=== PATIENT | male | born 1980 | race Caucasian/White ===

== ENCOUNTER 2018-09-18 21:39 | Observation (INO) | payer BC, OTHER ==
--- NOTE | 2018-09-18 21:55 | ED Physician Documentation ---
Abdominal Pain - HISTORIAN Historian: patient - HPI Stated Complaint: Abdominal pain Chief Complaint: Abdominal Pain Additonal Information: Patient is a 37-year-old male that presents to the ER via [facility] from home. Patient c/o nausea and vomiting that started around 2p today. States he last ate at noon today (Wendys). States he was at work when symptoms started. States he has vomited > 5 times over the last hour, abdominal discomfort, epigastric discomfort. Denies any fever or diarrhea. Has not been around anyone ill. Denies any chest pain or shortness of breath. States he has not voided since earlier today. Onset: hours (2 p.m.) Duration: sudden-onset Timing: still present Context: denies: out of country travel, bad food Severity: moderate Quality: aching, cramping Associated Symptoms: chills, nausea, vomiting Exacerbated by: movements, food Relieved by: nothing - ROS CONST: no problems GI/: none CVS/RESP: none EYES/ENT: none MS/SKIN/LYMPH: none NEURO/PSYCH: anxiety, depression - SOCIAL HX Smoking History: greater than 1 pack/day Alcohol Use: none Drug Use: none - FAMILY HX Family History: none - PAST HX Past History: none Ischemic Bowel Risk Factors: none Other History: hyperlipidemia, hypertension, other (depression, anxiety, HLD) Surgeries/Procedures: other (shoulder) Immunizations: UTD Home Medications: Ambulatory Orders Medication Instructions Recorded Alprazolam [Niravam] 0.25 mg TID PRN 09/18/18 Bupropion HCl [Wellbutrin Sr] 150 mg BID 09/18/18 Cyclobenzaprine HCl [Flexeril] 10 mg PRN 09/18/18 Gemfibrozil [Lopid] 600 mg AM 09/18/18 Lisinopril [Prinivil] 10 mg DAILY 09/18/18 Venlafaxine HCl [Effexor Xr] 150 mg DAILY 09/18/18 Allergies/Adverse Reactions: Allergies Allergy/AdvReac Type Severity Reaction Status Date / Time No Known Allergies Allergy Verified 09/18/18 21:51 - VITAL SIGNS Vital Signs: Vital Signs Temp Pulse Resp BP Pulse Ox 98.2 F 87 16 141/97 97 09/18/18 21:40 09/18/18 22:10 09/18/18 22:10 09/18/18 22:10 09/18/18 22:10 - REVIEWED ASSESSMENTS Nursing Assessment Reviewed: Yes Vitals Reviewed: Yes Progress - Progress Progress: 23:50 Patient has a SBO- no vomiting since arrival- will continue with IV hydration and admit as an inpatient; will hydrate with NS at 100cc/hr, repeat labs tomorrow afternoon as well as a KUB. 00:05 patient had a large BM and was able to void on his own ED Results Lab/Radiology - Lab Results Lab Results: WBC 21.3, H&H 14.6 & 43.3, Platelets 355, NE 84.4, LY 7.6, MO 5.9 Na 142, K+ 4.0, Cl 102, CO2 26, Glucose 177, BUN/Cr 12/1.14, Lipase 36, ALT 10.2, AST 23, ALK phos 124 Urine; glucose neg; bilirubin 1+; ketone trace; specific gravity 1.010; blood trace; Ph 6.5; protein 1+; urobilinogen 1.0; nitrate negative; leukocytes negative - Orders Orders: ED Orders Category Date Time Status Intermittent urinary catheteri 1T Care 09/18/18 23:32 Active Oil Enema [Administer Enema] 1T Care 09/18/18 23:[address] IV Lock 1T Care 09/18/18 21:[address] ABD & PELVIS W/ CON Stat Exams 09/18/18 Completed BLOOD CULTURE Stat Lab 09/18/18 Ordered CBC/PLATELET/DIFF Routine Lab 09/18/18 22:06 Received CMP Routine Lab 09/18/18 22:05 Received LIPASE Stat Lab 09/18/18 22:05 Received UDS [DRUG SCREEN URINE MEDICAL ONLY] Routine Lab 09/18/18 Ordered URINALYSIS Routine Lab 09/18/18 Ordered 0.9 % Sodium Chloride [Normal Saline] 1,000 ml Med 09/18/18 23:17 Discontinued IV Q1H Famotidine/Pf [Pepcid] Med 09/19/18 00:04 Discontinued 20 mg IV NOW ONE Ketorolac Tromethamine [Toradol] Med 09/18/18 23:09 Discontinued 30 mg IV NOW ONE EKG WITH COMPARISON Stat Ther 09/18/18 Ordered Abdominal Pain Physical Exam - Physical Exam General Appearance: moderate distress EENT: eye inspection normal, ENT inspection normal, pharynx normal, dry mucous membranes NECK: normal inspection, supple RESPIRATORY: breath sounds normal CVS: heart sounds normal ABDOMEN: normal bowel sounds, tenderness, other (abdomen firm) SKIN: warm/dry, normal color EXTREMITIES: non-tender, normal range of motion NEURO: oriented X3, CN's nml as tested, motor nml, sensation nml, mood/affect nml, cognition normal Vital Signs: Vital Signs Temp Pulse Resp BP Pulse Ox 98.2 F 87 16 141/97 97 09/18/18 21:40 09/18/18 22:10 09/18/18 22:10 09/18/18 22:10 09/18/18 22:10 Discharge Clincal Impression: Small bowel obstruction Condition: Good Decision to Admit: [id number] Date of Decison to Admit: 09/19/18 Decision Time: 00:25
[2018-09-18] MEDS ORDERED: KETOROLAC TROMETHAMINE 30 MG/1ML VIAL IV ONE (23:09)
[2018-09-18] MEDS ORDERED: 0.9 % SODIUM CHLORIDE 1,000 ML IV ONE (23:17)
--- NOTE | 2018-09-18 23:41 | Diagnostic Imaging Report ---
JUAN ESPINOSA ED [facility] [address] [address] Report Submission Date: Sep 18, 2018 11:26:54 PM CDT Patient Study Name: PRINCESS CAMPOS Date: Sep 18, 2018 10:48:53 PM CDT Modality Type: CT\SR Gender: M Description: CT ABD PELVIS W/ CON : 78 Institution: [facility] Physician: JUAN ESPINOSA ED EXAMINATION: CT ABD PELVIS W/ CON HISTORY: DIFFUSE ABDOMINAL PAIN W/ FREQUENT VOMITING (Hx) / ITS.REASON Diffuse abd pain with frequent vomiting Note time : 09/18/2018 11:01:02 PM User : Rayne Mcgee 90mL's Omni diffuse abdominal pain w/ frequent vomiting (DICOM Hx) (DICOM Hx) TECHNIQUE: CT of the abdomen and pelvis was performed with contrast according to standard protocol. COMPARISON: None FINDINGS: The aorta is normal in caliber. The visible lung bases are clear. The heart size is normal. The liver enhances homogeneously. The gallbladder appears normal. The intrahepatic and extrahepatic bile ducts are nondilated. The spleen enhances homogeneously. The pancreas and adrenal glands are normal. The kidneys enhance symmetrically. There is no evidence of renal calculus or hydronephrosis. The distal esophagus and stomach appear normal. There is diffuse dilatation of the small bowel. The colon is relatively decompressed. No definite transition point is identified. There are multiple air fluid levels. The appendix is not seen. No free air or free fluid is identified in the abdomen. There is no abdominal lymphadenopathy. The urinary bladder is distended with fluid and appears normal. No free fluid is seen in the pelvis. Bone windows demonstrate no suspicious lytic or blastic lesions. The visible osseous structures are intact. IMPRESSION: 1. Diffuse small bowel dilatation, consistent with small bowel obstruction. The colon is relatively decompressed. There is no evidence of pneumoperitoneum or pneumatosis. Electronically signed on Sep 18, 2018 11:26:54 PM CDT by: Christiano JAMES
[2018-09-19] MEDS ORDERED: FAMOTIDINE 20 MG/2 ML VIAL IV ONE (00:04)
[2018-09-19] MEDS ORDERED: ONDANSETRON HCL/PF 4 MG/ 2ML VIAL IVP PRN (01:03)
[2018-09-19 01:34] VITALS: BMI 23.7
[2018-09-19] MEDS: 0.9 % SODIUM CHLORIDE 1,000 ML IV SCH ×3 (01:43→20:16)
[2018-09-19] MEDS: KETOROLAC TROMETHAMINE 30 MG/1ML VIAL IV PRN ×3 (05:56→23:00)
[2018-09-19 06:00] LABS: BASOPHILS % 0.5 % (0.0-1.5); NEUTROPHILS # 15.7 # k/uL (1.4-7.7)
[2018-09-19 06:13] LABS: BASOPHILS % 0.8 % (0.0-1.5); NEUTROPHILS # 18.3 # k/uL (1.4-7.7)
[2018-09-19 06:14] LABS: eGFR (Non-African) > 60
[2018-09-19 06:20] LABS: eGFR (Non-African) > 60
--- NOTE | 2018-09-19 07:39 | History and Physical Report ---
History of Present Illnes - History of Present Illness Reason for Visit: Small Bowel Obstrction History of Present Illness: ER Documentation "Patient is a 37-year-old male that presents to the ER via [facility] from home. Patient c/o nausea and vomiting that started around 2p today. States he last ate at noon today (Wendys). States he was at work when symptoms started. States he has vomited > 5 times over the last hour, abdominal discomfort, epigastric discomfort. Denies any fever or diarrhea. Has not been around anyone ill. Denies any chest pain or shortness of breath. States he has not voided since earlier today'. 07:30 Patient feeling much better this morning- no nausea or vomiting- very mild abdominal discomfort- no vomiting since admission Called and spoke to Dr. Daniel at the [facility]; does not recommend transfer; patient condition improving; advance diet to clear liquids; if patient does well- consider discharge. - Past Medical History Cardiac: HTN, Hyperlipidemia Psych: Anxiety, Depression - Past Surgical History Past Surgical History: Other (Shoulder) - Past Social History Smoke: 1 pack per day Alcohol: Occassional Drugs: Marijuana, Other (Meth) Lives: With Family Domestic Violence: Negative - Health Maintenance Health Maintenance: Cholesterol, Tetanus Influenza Vaccine: No Pneumonia Vaccine: No Resuscitation Status: Resusciation Status Resuscitation Status Full Code Review of Systems - Review of Systems Constitutional: negative: Fever, Chills Eyes: negative: conjunctivae inflammation, eyelid inflammation ENT: negative: Nose Discharge Respiratory: negative: Cough, Shortness of Breath Cardiovascular: negative: Chest Pain Gastrointestinal: Nausea (Improving- no vomiting since arrival to ER), Abdominal Pain (Improved- dull). negative: Vomiting Genitourinary: negative: Dysuria Musculoskeletal: negative: Back Pain Skin: negative: Rash Neurological: negative: Weakness - Medications/Allergies Allergies/Adverse Reactions: Allergies Allergy/AdvReac Type Severity Reaction Status Date / Time No Known Allergies Allergy Verified 09/18/18 21:51 Home Medications: Home Medications Alprazolam [Niravam] 0.25 mg TID PRN 09/18/18 Bupropion HCl [Wellbutrin Sr] 150 mg BID 09/18/18 Cyclobenzaprine HCl [Flexeril] 10 mg PRN 09/18/18 Gemfibrozil [Lopid] 600 mg AM 09/18/18 Lisinopril [Prinivil] 10 mg DAILY 09/18/18 Venlafaxine HCl [Effexor Xr] 150 mg DAILY 09/18/18 Current Inpatient Medications: Current Inpatient Medications Famotidine (Pepcid) 20 mg IV BID RODERICK Sodium Chloride (Normal Saline) 1,000 mls @ 100 mls/hr IV Q10H RDOERICK Last Admin: 09/19/18 01:43 Dose: 100 mls/hr Ketorolac Tromethamine (Toradol) 30 mg IV Q6 PRN PRN Reason: PAIN Stop: 09/24/18 05:59 Last Admin: 09/19/18 05:56 Dose: 30 mg Ondansetron HCl (Zofran) 4 mg IVP Q6H PRN PRN Reason: Nausea / Vomiting Exam - Exam Vital Signs: Vital Signs (72 hours) 09/18/18 09/18/18 09/19/18 21:40 22:10 01:01 Temperature 98.2 F 97.9 F Pulse Rate 108 H Pulse Rate [ 71 87 108 H Pulse ox] Respiratory 20 16 20 Rate Blood Pressure [Left Arm] Blood Pressure 145/84 141/97 147/89 [Right Arm] O2 Sat by Pulse 99 97 98 Oximetry 09/19/18 09/19/18 09/19/18 01:21 01:40 05:01 Temperature 97.9 F Pulse Rate 98 H Pulse Rate [ 108 H Pulse ox] Respiratory 17 17 Rate Blood Pressure 102/69 [Left Arm] Blood Pressure 136/83 136/83 [Right Arm] O2 Sat by Pulse 99 99 99 Oximetry 09/19/18 09/19/18 05:21 05:39 Temperature 99.1 F Pulse Rate Pulse Rate [ 99 H 99 H Pulse ox] Respiratory 20 20 Rate Blood Pressure [Left Arm] Blood Pressure 155/91 [Right Arm] O2 Sat by Pulse 99 Oximetry General: Alert, Oriented to Person, Oriented to Place, Oriented to Time, Cooperative, No acute distress HEENT: PERRLA, Mouth Mucous membr. moist/[place], Nose Mucous membr. moist/[place] Neck: Normal Range of Motion Carotids: No bruit Lungs: Clear to auscultation, Normal air movement, Speaks full Sentences Cardiovascular: Regular rate, Normal S1, Normal S2 Abdomen: Normal bowel sounds, Other (Firm- improving since prior assessment ) Integumentary: Normal, [place], Warm, Dry Extremities: Normal pulses, No tenderness/swelling Neurological: Normal gait, Normal speech, Strength Equal Bilat, Sensation intact Psych/Mental Status: Mental status NL, Mood NL, Appropriate Affect, Intact Judgment - Laboratory Results Laboratory Results: Laboratory Results 09/18/18 09/18/18 09/18/18 22:05 22:05 22:06 WBC 21.60 H RBC 4.77 Hgb 14.7 Hct 43.6 MCV 91.0 MCH 30.8 MCHC 33.7 RDW 12.7 Plt Count 337 Neut % (Auto) 84.9 H Lymph % (Auto) 7.0 L [place] % (Auto) 5.8 Eos % (Auto) 1.5 Baso % (Auto) 0.8 Neut # (Auto) 18.3 H Lymph # (Auto) 1.5 [place] # (Auto) 1.3 H Eos # (Auto) 0.3 Baso # (Auto) 0.2 Sodium 142 Potassium 4.0 Chloride 102 Carbon Dioxide 26 Anion Gap 18.0 H BUN 12 Creatinine 1.14 Estimated Creat Clear 104 Est GFR ( Amer) > 60 Est GFR (Non-Af Amer) > 60 Glucose 177 H Calcium 10.2 Total Bilirubin 0.4 AST 23 ALT 9 L Alkaline Phosphatase 124 Total Protein 8.2 Albumin 4.9 Lipase 36 09/19/18 09/19/18 05:40 05:40 WBC 18.40 H RBC 4.06 Hgb 12.5 Hct 36.9 L MCV 91.0 MCH 30.9 MCHC 33.9 RDW 13.5 Plt Count 294 Neut % (Auto) 85.3 H Lymph % (Auto) 6.4 L [place] % (Auto) 6.3 Eos % (Auto) 1.5 Baso % (Auto) 0.5 Neut # (Auto) 15.7 H Lymph # (Auto) 1.2 [place] # (Auto) 1.2 H Eos # (Auto) 0.3 Baso # (Auto) 0.1 Sodium 141 Potassium 4.0 Chloride 108 H Carbon Dioxide 25 Anion Gap 12.0 H BUN 13 Creatinine 0.97 Estimated Creat Clear 122 Est GFR ( Amer) > 60 Est GFR (Non-Af Amer) > 60 Glucose 136 H Calcium 8.6 Total Bilirubin 0.3 AST 19 ALT 12 L Alkaline Phosphatase 94 Total Protein 6.5 Albumin 3.8 Lipase Assessment/Plan - Assessment/Plan (1) Small bowel obstruction Status: Acute Current Visit: Yes Plan: Will start with clear liquid diet today as long as patient is having no emesis; will continue with IVF; antiemetics prn (2) Hypertension Status: Acute Current Visit: Yes Qualifiers: Hypertension type: essential hypertension Qualified Code(s): I10 - Essential (primary) hypertension Plan: Will continue with home meds this morning (3) Hyperlipemia Status: Acute Current Visit: Yes Plan: Will continue with home meds this morning (4) Nausea and vomiting Status: Acute Current Visit: Yes Plan: Zofran ordered IV prn; IVF @ 100 cc/hr VTE Assessment - RISK FACTOR SCORE VTE RISK FACTOR SCORES: SMOKER - RISK VTE LOW RISK: SCORE OF 1 OR LESS (RISK PROXIMAL DVT 0.4%) NO PROPHYLAXIS NEEDED
--- NOTE | 2018-09-19 08:47 | Diagnostic Imaging Report ---
PERCY ESPINOSA [facility] [address] [facility].[address] [address] Report Submission Date: Sep 19, 2018 7:07:16 AM CDT Patient Study Name: PRINCESS CAMPOS Date: Sep 19, 2018 6:36:15 AM CDT Modality Type: DX Gender: M Description: ABDOMEN 1VIEW : 78 Institution: [facility] Physician: PERCY ESPINOSA Supine abdomen History: Bowel obstruction Findings: Multiple mildly dilated air filled small bowel loops are present. Very little air is noted in the colon. Findings are suspicious for distal small bowel obstruction. Contrast is noted in a normal-appearing urinary bladder from a recent CT examination. Impression: Small bowel distention, consistent with obstruction. Electronically signed on Sep 19, 2018 7:07:16 AM CDT by: Charles JAMES
[2018-09-19] MEDS ORDERED: FAMOTIDINE 20 MG TABLET ONE (09:11)
[2018-09-19] MEDS: buPROPion 150 MG TAB.ER.12H PO SCH ×2 (09:16→20:25)
[2018-09-19] MEDS: LISINOPRIL 10 MG TABLET PO SCH (09:16)
[2018-09-19] MEDS: VENLAFAXINE HCL 37.5 MG CAP.ER.24H PO SCH (09:17)
[2018-09-19] MEDS: FAMOTIDINE 20 MG/2 ML VIAL IV SCH ×2 (09:23→20:32)
[2018-09-19 16:46] LABS: APPEARANCE,URINE CLEAR (CLEAR); COLOR,URINE YELLOW (YELLOW); OCCULT BLOOD,URINE TRACE (NEGATIVE); PH URINE 6.5 (5.0 - 8.0)
[2018-09-19 16:47] LABS: CANNABINOIDS NON NEGATIVE ng/mL (< 50); METHYLENEDIOXYMETHAMPHETAMINE NEGATIVE ng/mL (<500)
[2018-09-20] MEDS: 0.9 % SODIUM CHLORIDE 1,000 ML IV SCH (05:38)
[2018-09-20] MEDS: KETOROLAC TROMETHAMINE 30 MG/1ML VIAL IV PRN (05:38)
[2018-09-20 06:20] LABS: BASOPHILS % 0.5 % (0.0-1.5); NEUTROPHILS # 2.2 # k/uL (1.4-7.7)
[2018-09-20 06:22] LABS: eGFR (Non-African) > 60
--- NOTE | 2018-09-20 08:05 | Discharge Summary ---
Discharge Summary - Discharge [facility] Admission Date: 09/19/18 Discharge Date: 09/20/18 Discharge To: Home History of Present Illness: ER Documentation "Patient is a 37-year-old male that presents to the ER via [facility] from home. Patient c/o nausea and vomiting that started around 2p today. States he last ate at noon today (Wendys). States he was at work when symptoms started. States he has vomited > 5 times over the last hour, abdominal dis comfort, epigastric discomfort. Denies any fever or diarrhea. Has not been around anyone ill. Denies any chest pain or shortness of breath. States he has not voided since earlier today'. 07:30 Patient feeling much better this morning- no nausea or vomiting- very mild abdominal discomfort- no vomiting since admission Called and spoke to Dr. Daniel at the [facility]; does not recommend trans elba; patient condition improving; advance diet to clear liquids; if patient does well- consider discharge. Condition at Discharge: Stable Home Medications: Ambulatory Orders Medication Instructions Recorded Alprazolam [Niravam] 0.25 mg TID PRN 09/18/18 Bupropion HCl [Wellbutrin Sr] 150 mg BID 09/18/18 Cyclobenzaprine HCl [Flexeril] 10 mg PRN 09/18/18 Gemfibrozil [Lopid] 600 mg AM 09/18/18 Lisinopril [Prinivil] 10 mg DAILY 09/18/18 Venlafaxine HCl [Effexor Xr] 150 mg DAILY 09/18/18 Consultations this Visit: Other ([facility] ER Dr. Daniel) Procedures this Visit: None Allergies/Adverse Reactions: Allergies Allergy/AdvReac Type Severity Reaction Status Date / Time No Known Allergies Allergy Verified 09/18/18 21:51 Discharge Summary: Patient is a 37-year-old male that was admitted for SBO; nausea and vomiting has improved. No vomiting since arrival to ER- tolerating clear liquids, abdominal pain improved. Discussed no more drug use. Increase fluid intake. Patient has had a couple of bowel movements. Hospital Course: IVF and antiemetics - Final Diagnosis (1) Small bowel obstruction Problems: stable- no pain Right or Left: Right (2) Hypertension Problems: stable Right or Left: Right (3) Hyperlipemia Problems: stable Right or Left: Right (4) Nausea and vomiting Problems: stable Right or Left: Right
[2018-09-20] MEDS: buPROPion 150 MG TAB.ER.12H PO SCH (08:30)
[2018-09-20] MEDS: VENLAFAXINE HCL 37.5 MG CAP.ER.24H PO SCH (08:30)
[2018-09-20] MEDS: FAMOTIDINE 20 MG/2 ML VIAL IV SCH (08:30)
[2018-09-20] MEDS: LISINOPRIL 10 MG TABLET PO SCH (08:30)
[2018-09-20 09:39] VITALS: BP 130/83
--- NOTE | 2018-09-20 10:03 | Diagnostic Imaging Report ---
PERCY ESPINOSA [facility] [address] [facility].[address] [address] Report Submission Date: Sep 20, 2018 4:52:20 AM CDT Patient Study Name: PRINCESS CAMPOS Date: Sep 20, 2018 4:22:13 AM CDT Modality Type: DX Gender: M Description: ABDOMEN 1VIEW : 78 Institution: [facility] Physician: PERCY ESPINOSA Portable chest History: Small bowel obstruction follow-up Two supine views of the abdomen were obtained and comparison made with yesterday's radiographs. Lung bases are clear. Persistent abnormally dilated loops of small bowel are present with only a small amount of colonic gas. These findings are consistent with a high-grade small bowel obstruction, unchanged to perhaps mildly improved compared with yesterday's radiograph. Impression: High-grade small bowel obstruction, unchanged to perhaps mildly improved compared with yesterday's radiograph. Electronically signed on Sep 20, 2018 4:52:20 AM CDT by: Belkys JAMES
== END 2018-09-20 09:35 | disposition home or self-care (01) ==
LOC: ED 21:39 → SOUTH 09-19 00:31
PROVIDERS: ADMIT Nurse Practitioner Family; ATTEND Nurse Practitioner Family
DX: K56.609 Unspecified intestinal obstruction, unspecified as to partial versus complete obstruction (principal)
CPT/HCPCS: 36415; 74018; 74177; 80053; 80377; 81002; 83690; 85025; 87040; 93005; 99234; G0378; J1885; J2405; J7030; Q9967; G0481

== ENCOUNTER 2018-09-23 12:32 | Outpatient (CLI) | payer BC ==
--- NOTE | 2018-09-24 13:08 | Diagnostic Imaging Report ---
NIRAV RÍOS (RASHID) - OP [facility] [address] [facility].[address] [address] Report Submission Date: Sep 24, 2018 11:58:27 AM CDT Patient Study Name: PRINCESS CAMPOS Date: Sep 23, 2018 12:41:44 PM CDT Modality Type: DX Gender: M Description: ABD COMPLETE : 78 Institution: [facility] Physician: NIRAV RÍOS (RASHID) - OP Obstructive series 3 views Clinical history: Recent bowel obstruction Slightly dilated upper small bowel loops. No evidence of free air. There is significant improvement of the mechanical small bowel obstruction since September 20, 2018 Impression: Significant improvement of the mechanical small bowel obstruction since September 20, 2018 There is slight residual dilatation of the upper small bowel loops Electronically signed on Sep 24, 2018 11:58:27 AM CDT by: Filiberto JAMES
== END 2018-09-23 12:34 ==
LOC: RAD 12:32
PROVIDERS: ATTEND Nurse Practitioner Family
DX: R10.9 Unspecified abdominal pain (principal)
CPT/HCPCS: 74019